=== PATIENT | female | born 1955 | race Caucasian/White ===

== ENCOUNTER → 2024-01-20 13:25 | Outpatient (REF) | payer OTHER, SELFPAY | LOC: RCS 13:25 | PROVIDERS: ATTENDING PHYSICIAN Ophthalmology; FAMILY PHYSICIAN Family Medicine | DX: Z01.818 Encounter for other preprocedural examination (principal) | CPT/HCPCS: 93005 ==

== ENCOUNTER 2024-10-06 16:24 | Observation (INO) | payer OTHER, SELFPAY ==
[2024-10-06] VITALS (11 sets, daily range): BP systolic 85–144; BP diastolic 48–106; BMI 26.0; BMI 26.5
[2024-10-06] MEDS: NSS 1000 IV ×2 (13:07→19:33)
[2024-10-06 13:43] LABS: Blood Urea Nitrogen 14 mg/dl (7-17); Calcium 8.3 mg/dl (8.4-10.2); Carbon Dioxide 25 mmol/L (22-30); Chloride 105 mmol/L (98-107); Estimated Creatinine Clearance 72 ml/min; Glucose 107 mg/dl (70-99); Potassium 4.2 mmol/L (3.5-5.1); Sodium 134 mmol/L (135-145); eGFR > 60.00
--- NOTE | 2024-10-06 13:49 | ED.GENMED ---
History of Present Illness
General
Chief Complaint: Cold/Flu/URI Symptoms
Source: patient and spouse
Exam Limitations: none
Time Seen by Provider: 10/06/24 12:44
History of Present Illness
History of Present Illness:
69-year-old female high fever today. Diagnosed with COVID 4 to 5 days ago. Seemed better yesterday. However high fever today. No shortness of breath. Some cough. No other infectious symptoms. Fever was 104 by skin thermometer. No
antipyretics given at home
Past History
Past History
ED Past Surgical History: Other (Splenectomy)
Phy Exam
Physical Exam
Physical Exam:
GENERAL: Alert and oriented in no apparent distress
EYE: Orbits normal.
NECK: Supple
CARDIAC: Regular rate and rhythm without any obvious murmurs.
LUNGS: Clear breath sounds,normal
ABDOMEN: Soft, without focal tenderness or distention
NEUROLOGICAL: Alert and oriented , grossly non-focal
SKIN: Warm and dry, no rash or lesion, no discoloration, skin intact.
MUSCULOSKELETAL: No edema,no deformity.Good color
PSYCH: Normal and appropriate interaction.
Sepsis
Sepsis Screening
Sepsis Assessment: Sepsis Ruled Out
Sepsis Screen
Sepsis Screen: Sepsis Ruled Out
Date: 10/07/24
Time: 16:44
Course
Orders/Labs/Results
Orders:
Orders
10/06/24 12:57
IV Insert/Care/Rem.- Treatment PRN
0.9% Sodium Chloride 1000 ml [Nss] 1,000 ml IV BOLUS
CXR2 [CR Chest - 2 Views ] Urgent
Comment:
Reason For Exam: COVID/short of breath/cough
10/06/24 13:10
Basic Metabolic Panel Urgent
Complete Blood Count/With Diff Urgent
10/06/24 14:51
COVID-19 Antigen Urgent
Source: Nasal Swab
10/06/24 Dinner
Regular
At Your Request: Full Participation
10/06/24 15:02
CefTRIAXone [Rocephin] 1,000 mg IV NOW STA
10/06/24 15:24
Sterile Water [Sterile Water For Injection] 10 ml .ROUTE .STK-MED ONE
10/06/24 15:35
Blood Culture Q30M
VIKI Source: Blood/Venous
Specimen Description:
10/06/24 15:42
Blood Culture Q30M
VIKI Source: Blood/Venous
Specimen Description:
10/06/24 15:52
Acetaminophen [Tylenol] 650 mg PO NOW STA
10/06/24 15:58
Urinalysis Reflex To Culture Urgent
Date Specimen was Collected: 10/06/24
Time Specimen was Collected: 15:55
Urine Microscopic Reflex Cult Urgent
Urine Culture Urgent
VIKI Source: U
Specimen Description:
Date Specimen was Collected: 10/06/24
Time Specimen was Collected: 15:55
10/06/24 16:12
Admit/Transfer Patient As Directed
Co-Sign Provider:
Level of Care: Observation services
Assign to:: Medical/Surgical
Physician / Group: Sudarshan Jose
Diagnosis: fever, dry cough, viral infection
Reason for Hospitalization: fever, dry cough, viral infection
Expected length of stay greater than two midnights?: Yes
ELOS- Estimated Length of Stay in days: 2
I certify the patient meets the requirements for IP care: Yes
PRN Pain Medication Management As Directed
May give lesser potent ordered pain med per pt: Yes
preference::
Protocol:: Medication orders for pain may be administered in a
manner that supports deferring to patient preference
when the pt is:
- Requesting an ordered lesser potent pain medication.
Least to most potent pain medications are defined
as: acetaminophen < NSAID < tramadol < opioids
(morphine, oxycodone, hydromorphone).
- Requesting a lesser dose of the same medication IF
ORDERED.
- Requesting a less intrusive route of administration
if both routes are prescribed by the provider (PO <
IV).
10/06/24 16:13
Code Status As Directed
Resuscitation Status: Full Code
10/06/24 17:10
Influenza A+B Rapid Molecular Urgent
VIKI Source: Nasal Swab
Specimen Description:
10/06/24 18:42
Acetaminophen [Tylenol] 650 mg PO Q4HPRN PRN
Enoxaparin Sodium [Lovenox] 40 mg SC QPM
10/06/24 18:42
Activity As Directed
Activity Level: Ambulate
Vital Signs As Directed
Frequency: Per unit guidelines
Weight As Directed
Frequency: Once
Comment: on admission
DX Deep Vein Thrombosis Video Routine
10/07/24 06:23
Basic Metabolic Panel IN AM
Complete Blood Count/No Diff IN AM
Abnormal Lab Results
10/06/24 10/06/24
13:10 15:58
RBC 4.00 L 10^6/uL
(4.20-5.40)
Hgb 11.6 L g/dL
(12.0-16.0)
Hct 33.9 L %
(37.0-47.0)
Plt Count 124 L 10^3/uL
(130-400)
MPV 11.6 H fL
(7.4-10.4)
Abs Immat Gran (auto) 0.1 H 10^3/uL
(0-0.05)
Absolute Monos (auto) 0.9 H 10^3/uL
(0.1-0.6)
Immature Gran % 1.1 H %
(0-0.5)
Monocytes % 12.6 H %
(1.7-9.3)
Sodium 134 L mmol/L
(135-145)
Glucose 107 H mg/dl
(70-99)
Calcium 8.3 L mg/dl
(8.4-10.2)
Ur Occult Blood Reflex 3+ A
(Negative)
Leukocyte Esterase Rfl 3+ A
(Negative)
Urine RBC 11-15 A /HPF
(0-2)
Urine WBC (Reflex) 40-50 A /HPF
(0-5)
Urine Bacteria (Reflex) Moderate A
(Negative)
10/06/24 13:10
10/06/24 13:10
Vital Signs
Initial and Last Documented VS:
Initial Vital Signs
Temp Pulse Resp BP Pulse Ox
99.8 F 86 18 143/106 97
10/06/24 11:52 10/06/24 11:52 10/06/24 11:52 10/06/24 11:52 10/06/24 11:52
Last Documented Vital Signs
Temp Pulse Resp BP Pulse Ox
98.9 F 87 18 117/85 96
10/07/24 13:36 10/07/24 13:36 10/07/24 13:36 10/07/24 13:36 10/07/24 13:36
*Radiology
Radiology exam reviewed: preliminary read by ED provider (Negative) and radiology read reviewed (Negative)
*Pulse Oximetry
SaO2: 95
Oxygen Mode of Delivery: Room air
Patient hypoxic: no
*Critical Care Note
Total Time (30-74mins, 75-104mins- exclusive of procedures): Not Applicable
Update Note
Update Note:
Patient has remained medically stable and nontoxic. In no distress. No pulse ox. Blood pressure about 100 which is normal for her. I have elected to do blood cultures and give a dose of Rocephin although nothing to support a bacterial issue with
her splenectomy.
I had planned on letting this patient be discharged given the positive COVID diagnosis with stable other testing. However COVID test here is negative with a high fever earlier today. I am not confident enough in the 1 positive COVID earlier in the
week that this would not be a bacterial source and therefore we will admit her to the hospital
ED Attending Note
-
Portions of this chart may have been created with voice recognition software.� Occasional wrong word or��sound alike� substitutions may have occurred due to the inherent limitations of voice recognition software.
Discharge Plan
Departure
Patient Disposition: Admit
Date of Disposition: 10/06/24
Time of Disposition: 15:03
Presentation/result/management discussed w/ accepting MD/DO: Hospitalist
Patient with high blood pressure during this ER visit?: No
Discharge Problem:
COVID-19
Interventions
Interventions:
*Risk Screen - Suicide Last Done: 10/06/24 19:19
*General Assessment Last Done: 10/06/24 12:39
*Neglect/Abuse Screening Last Done: 10/06/24 11:52
*ED- Fall Risk Assessment Last Done: 10/06/24 12:39
*ED COVID-19 Vaccine History Last Done: 10/06/24 19:19
*Nursing Disposition Last Done: 10/06/24 18:16
ED- Pulmonary Assessment Last Done: 10/06/24 12:39
Discharge Date and Time
Discharge Date/Time: 10/06/24 18:49
[2024-10-06 13:52] LABS: Hematocrit 33.9 % (37.0-47.0); Hemoglobin 11.6 g/dL (12.0-16.0); Mean Corp Hgb Conc. 34.2 g/dL (33.0-37.0); Mean Corpuscular Volume 84.8 fL (81.0-99.0); Nucleated Red Blood Cells % 0 %; Platelet Count 124 10^3/uL (130-400); Red Cell Dist. Width 14.3 % (11.5-14.5)
[2024-10-06 15:15] LABS: COVID-19 Antigen Negative (Negative)
[2024-10-06] MEDS: ROCEPHIN 1000 MG IV (15:42)
--- NOTE | 2024-10-06 15:50 | HPS.HSE ---
Family Physician
-
Family Physician: Toby Kimball MD
Chief Complaint
-
elevated fever
History of Present Illness
Patient is a 69-year-old female with past medical history significant for splenectomy who presented to [facility] ED for evaluation of elevated fever at home today. Patient reports not feeling well all week, she stated just feels under the weather and dry
cough. On Wednesday she took home Covid swab that she reports was positive and today she spiked a fever of 104 at home so her brought her in for evaluation. Patient denies any shortness of breath, chest pain, nausea, vomiting, constipation,
dairrhea or urinary symptoms.
Medical History
Past Medical History
Past Medical History: Reports None
Past Surgical History: Reports Other
Additional Past Surgical History:
splenectomy 2009
Social History
Tobacco: Non-smoker
Alcohol: Occasional
Drug: None
Personal:
Living: With Family
Employment: Retired
Family History
Family History: Not pertinent
Allergies / Home Medications
Allergies reflects when Allergies were last updated in [employer].
Home Medications with original date entered in [employer]
Allergy/Medication List:
Allergies
Allergy/AdvReac Type Severity Reaction Status Date / Time
No Known Allergies Allergy Unverified 09/27/08 22:40
Home Medications
No Meds [No Current Medications] 10/06/24
Review of Systems
-
History Source: Patient
Constitutional: Reports Fever
EENT: Reports No Symptoms
Respiratory: Reports Cough (dry )
Cardiac: Reports No Symptoms
Abdomen/GI: Reports Other (decreased appetite )
: Reports No Symptoms
Musculoskeletal: Reports No Symptoms
Skin: Reports No Symptoms
Neurological: Reports No Symptoms
Endocrine: Reports No Symptoms
Hematologic/Lymphatic: Reports No Symptoms
Psych: Reports No Symptoms
Physical Exam
Vital Signs
Vital Signs
Temp Pulse Resp BP Pulse Ox
102.1 F H 71 20 95/58 95
10/06/24 15:48 10/06/24 15:48 10/06/24 12:36 10/06/24 15:00 10/06/24 15:00
Physical Exam
General: Well Developed, Well Nourished and Conversant
HEENT: NormoCephalic, Moist mucous membranes, Atraumatic, PERRLA, Nose Appears Normal and Ears Appear Normal
Respiratory: Clear
Cardiac: S1/S2 and Regular Rhythm
Breast: Deferred by me
GI: Soft, Non Tender, Non Distended and Normal Bowel Sounds
Rectal: Deferred by Provider
Genito-urinary: Deferred by me
Musculoskeletal: No Clubbing, No Cyanosis and No Edema
Skin: Warm and IV/Catheter Site
Neuro: Awake, Alert, AO x 3 and Nonfocal/grossly intact
Psych: Calm and Intact Judgment/Insight
Laboratory Results
-
10/06/24 13:10
10/06/24 13:10
Data Reviewed
-
Diagnostic Radiology: Report Reviewed by me (CXR: No evidence of active cardiopulmonary disease.)
Lab Data: Labs Reviewed by me
Impression/Plan
-
IMPRESSION/PLAN:
#fever with dry cough likely 2/2 viral infection
s/p splenectomy 2009
Covid: negative
Influenza: pending
CXR: No evidence of active cardiopulmonary disease.
UA: pending
Urine Cx: pending
- Admit to med/surg for observation
- empiric antibiotics Levaquin
- supportive care
Code status: full code
DVT prophylaxis: Lovenox sq
[2024-10-06] MEDS: TYLENOL 650 MG PO (16:00)
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
[2024-10-06 16:11] LABS: Urine Character Clear (Clear)
[2024-10-06 16:26] LABS: Urine Squamous Cell 26-30 /LPF (Few); Urine Urothelial Cell 0-2 /LPF (FEW)
[2024-10-06 16:27] LABS: Urine White Cell 40-50 /HPF (0-5)
[2024-10-06] MEDS: LOVENOX 40 MG SC (19:33)
[2024-10-07 07:03] LABS: Hematocrit 29.7 % (37.0-47.0); Hemoglobin 10.3 g/dL (12.0-16.0); Mean Corp Hgb Conc. 34.7 g/dL (33.0-37.0); Mean Corpuscular Volume 85.1 fL (81.0-99.0); Platelet Count 128 10^3/uL (130-400); Red Cell Dist. Width 14.4 % (11.5-14.5)
[2024-10-07 07:08] VITALS: BP 111/45
[2024-10-07 07:33] LABS: Blood Urea Nitrogen 9 mg/dl (7-17); Calcium 7.9 mg/dl (8.4-10.2); Carbon Dioxide 23 mmol/L (22-30); Chloride 108 mmol/L (98-107); Estimated Creatinine Clearance 75 ml/min; Glucose 91 mg/dl (70-99); Potassium 4.0 mmol/L (3.5-5.1); Sodium 136 mmol/L (135-145); eGFR > 60.00
[2024-10-07] MEDS: LEVAQUIN 750 MG PO (08:06)
[2024-10-07] MEDS: NSS 1000 IV (08:07)
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
[2024-10-07 13:36] VITALS: BP 117/85
--- NOTE | 2024-10-07 13:42 | CM ---
[facility] letter given to patient Chart reviewed and patient was admitted from home where she lives with her spouse, patient's home is 2 story patient is independent with adl's and ambulation, no dme, patient drives home when stable, no needs.
PCP: Dr. Toby Kimball
Pharmacy: [facility]
Plan; Home today no needs.
== END 2024-10-07 13:59 | disposition home or self-care (01) ==
LOC: 4 WEST ACU 16:24
PROVIDERS: Nurse Practitioner Family; ADMITTING PHYSICIAN Internal Medicine; EMERGENCY PHYSICIAN Emergency Medicine; FAMILY PHYSICIAN Internal Medicine
DX: J18.9 Pneumonia, unspecified organism (principal); Q89.01 Asplenia (congenital); E87.1 Hypo-osmolality and hyponatremia; Z90.81 Acquired absence of spleen; Z11.52 Encounter for screening for COVID-19
CPT/HCPCS: 71046; 80048; 81003; 81015; 85025; 85027; 87040; 87086; 87449; 87502; 87811; 87899; 96361; 96374; 99284; G0378

== ENCOUNTER 2024-10-13 05:31 | Emergency (ER) | payer OTHER, SELFPAY ==
[2024-10-13 05:36] VITALS: BP 102/51
[2024-10-13 05:55] VITALS: BMI 23.9
--- NOTE | 2024-10-13 06:23 | ED.GENMED ---
History of Present Illness
<Yon Rangel PA-C - Last Filed: 10/13/24 14:43>
General
Chief Complaint: Cough
Source: patient
Time Seen by Provider: 10/13/24 06:03
History of Present Illness
History of Present Illness:
69-year-old female with recent past medical history of COVID requiring admission due to previous splenectomy and recurring fevers, presenting back to the emergency department due to persistent cough and fever yesterday with a Tmax of 102. Patient
endorses associated generalized weakness/fatigue, diminished p.o. intake and still the persistent nonproductive cough. Last dose of Advil was at some point last night but nothing this morning. Patient denies any chest pain, palpitations,
diaphoresis, pleurisy, hemoptysis, lower extremity edema or any other concerns. Patient tested positive for COVID on October 03, had a negative COVID test on October 06 here in the emergency department.
Past History
<Yon Rangel PA-C - Last Filed: 10/13/24 14:43>
Past History
ED Past Medical History: None
ED Past Surgical History: Other (Splenectomy)
Social History
Tobacco: Non-smoker
Alcohol: None
Drug: None
Personal:
Living: with family
Review of Systems
<Yon Rangel PA-C - Last Filed: 10/13/24 14:43>
Review of Systems
All Other Systems: ROS reviewed and negative except as documented in HPI and ROS
Phy Exam
<Yon Rangel PA-C - Last Filed: 10/13/24 14:43>
Physical Exam
Physical Exam:
GENERAL: Alert , in no apparent distress, persistent nonproductive cough during the exam
HEAD: Normocephalic atraumatic
EYE: conjunctiva clear
NECK: Supple
ENT: o/p clr, mmm.
CARDIAC: Regular rate and rhythm
LUNGS: Clear breath sounds bilaterally, no acute respiratory distress, no wheezes/rales/rhonchi
NEUROLOGICAL: Alert and oriented
SKIN: Warm and dry, skin intact.
MUSCULOSKELETAL: well perfused.
PSYCH: Normal and appropriate interaction.
Scores
<Yon Rangel PA-C - Last Filed: 10/13/24 14:43>
Heart Failure Risk
Heart Failure Risk Score: Not Applicable
Heart Score for Chest Pain Patients
STEMI patient?: Not applicable
Withdrawal Assessment of Alcohol
Withdrawal Assessment Completed?: Not applicable
Sepsis
<Yon Rangel PA-C - Last Filed: 10/13/24 14:43>
Sepsis Screening
Sepsis Assessment: Sepsis Ruled Out
Sepsis Screen
Sepsis Screen: Sepsis Ruled Out
Date: 10/13/24
Time: 14:42
Course
<Yon Rangel PA-C - Last Filed: 10/13/24 14:43>
Orders/Labs/Results
Orders:
Orders
10/13/24 06:21
CT Chest PE Study Urgent
Comment:
Reason For Exam: recent covid, continued cough, SOB, fever
10/13/24 06:26
0.9% Sodium Chloride 1000 ml [Nss] 1,000 ml IV BOLUS
10/13/24 06:28
COVID-19 Antigen Urgent
Source: Nasal Swab
Complete Blood Count/With Diff Urgent
Comprehensive Metabolic Panel Urgent
Manual Differential Urgent
Comment: ADD ON
Blood Culture Q30M
VIKI Source: Blood/Venous
Specimen Description:
Influenza A+B Rapid Molecular Urgent
VIKI Source: Nasal Swab
Specimen Description:
10/13/24 07:24
Blood Culture Q30M
VIKI Source: Blood/Venous
Specimen Description:
10/13/24 09:28
Ehrlichia/Anaplasma by PCR [S] Urgent
Lyme Progressive Urgent
Babesia Smear [Blood Parasites] Urgent
VIKI Source: Blood/Venous
Specimen Description:
Abnormal Lab Results
10/13/24
06:28
RBC 2.78 L 10^6/uL
(4.20-5.40)
Hgb 8.1 L D g/dL
(12.0-16.0)
Hct 23.8 L %
(37.0-47.0)
RDW 16.3 H %
(11.5-14.5)
Plt Count 110 L 10^3/uL
(130-400)
MPV 13.1 H fL
(7.4-10.4)
Lymphocytes (Manual) 17 L %
(20-51)
Sodium 133 L mmol/L
(135-145)
Carbon Dioxide 21 L mmol/L
(22-30)
Glucose 121 H mg/dl
(70-99)
Calcium 7.5 L mg/dl
(8.4-10.2)
Total Bilirubin 3.6 H mg/dl
(0.2-1.3)
AST 59 H U/L
(14-36)
Total Protein 6.1 L g/dl
(6.3-8.2)
Albumin 2.9 L g/dl
(3.5-5.0)
10/13/24 06:28
10/13/24 06:28
Vital Signs
Initial and Last Documented VS:
Initial Vital Signs
Temp Pulse Resp BP Pulse Ox
98.0 F 86 18 102/51 97
10/13/24 05:36 10/13/24 05:36 10/13/24 05:36 10/13/24 05:36 10/13/24 05:36
Last Documented Vital Signs
Temp Pulse Resp BP Pulse Ox
98.0 F 82 30 93/49 96
10/13/24 08:00 10/13/24 07:25 10/13/24 07:25 10/13/24 07:25 10/13/24 07:25
Body Welder consulted with Physician
Body Welder consulted with physician?: Yes
Name of Physician Consulted: Tiburcio
<Aron Perez, DO - Last Filed: 10/13/24 09:17>
Orders/Labs/Results
Orders:
Orders
10/13/24 06:21
CT Chest PE Study Urgent
Comment:
Reason For Exam: recent covid, continued cough, SOB, fever
10/13/24 06:26
0.9% Sodium Chloride 1000 ml [Nss] 1,000 ml IV BOLUS
10/13/24 06:28
COVID-19 Antigen Urgent
Source: Nasal Swab
Complete Blood Count/With Diff Urgent
Comprehensive Metabolic Panel Urgent
Manual Differential Urgent
Comment: ADD ON
Blood Culture Q30M
VIKI Source: Blood/Venous
Specimen Description:
Influenza A+B Rapid Molecular Urgent
VIKI Source: Nasal Swab
Specimen Description:
10/13/24 07:24
Blood Culture Q30M
VIKI Source: Blood/Venous
Specimen Description:
10/13/24 09:28
Ehrlichia/Anaplasma by PCR [S] Urgent
Lyme Progressive Urgent
Babesia Smear [Blood Parasites] Urgent
VIKI Source: Blood/Venous
Specimen Description:
Abnormal Lab Results
10/13/24
06:28
RBC 2.78 L 10^6/uL
(4.20-5.40)
Hgb 8.1 L D g/dL
(12.0-16.0)
Hct 23.8 L %
(37.0-47.0)
RDW 16.3 H %
(11.5-14.5)
Plt Count 110 L 10^3/uL
(130-400)
MPV 13.1 H fL
(7.4-10.4)
Lymphocytes (Manual) 17 L %
(20-51)
Sodium 133 L mmol/L
(135-145)
Carbon Dioxide 21 L mmol/L
(22-30)
Glucose 121 H mg/dl
(70-99)
Calcium 7.5 L mg/dl
(8.4-10.2)
Total Bilirubin 3.6 H mg/dl
(0.2-1.3)
AST 59 H U/L
(14-36)
Total Protein 6.1 L g/dl
(6.3-8.2)
Albumin 2.9 L g/dl
(3.5-5.0)
10/13/24 06:28
10/13/24 06:28
Vital Signs
Initial and Last Documented VS:
Initial Vital Signs
Temp Pulse Resp BP Pulse Ox
98.0 F 86 18 102/51 97
10/13/24 05:36 10/13/24 05:36 10/13/24 05:36 10/13/24 05:36 10/13/24 05:36
Last Documented Vital Signs
Temp Pulse Resp BP Pulse Ox
98.0 F 82 30 93/49 96
10/13/24 08:00 10/13/24 07:25 10/13/24 07:25 10/13/24 07:25 10/13/24 07:25
<Yon Rangel PA-C - Last Filed: 10/13/24 14:43>
MDM/Problems Addressed
Differential Diagnosis Includes:
Post COVID cough
Secondary pneumonia
Pulmonary embolism
Pleural effusion
Bronchitis
Myocarditis
Asthma/Reactive airway disease
MDM/Problems Addressed:
69-year-old female past medical history of previous splenectomy secondary to trauma presenting back to the emergency department after recent COVID infection, admitted here for 24-hour period, discharged home on a 10-day course of Augmentin,
continues to take this medication. Reports fever yesterday, afebrile here without antipyretics. She is in no acute distress. Persistent cough noted. Will obtain PE study. Labs including blood cultures ordered. Disposition pending.
Chronic conditions affecting care: Other (Previous splenectomy)
<Yon Rangel PA-C - Last Filed: 10/13/24 14:43>
*Radiology
Radiology exam reviewed: radiology read reviewed
*Pulse Oximetry
SaO2: 97
Oxygen Mode of Delivery: Room air
Patient hypoxic: no
*Mailroom Manager Interpretation
Rate: normal
Heart Rate: 85
Rhythm: sinus
*Critical Care Note
Total Time (30-74mins, 75-104mins- exclusive of procedures): Not Applicable
Data Reviewed
Review of Other/Old Records Reveals: Labs, Records, Radiology Studies and Discharge Summary
<Yon Rangel PA-C - Last Filed: 10/13/24 14:43>
Comment
Comment:
8:07 AM: Patient's labs reviewed. Hemoglobin has dropped from 11.6 on October 06 down to 8.1 today, her bilirubin and AST are also elevated which could be related to her recent known COVID infection. I did perform a bedside rectal exam, chaperoned by
ED RN Monie, light brown stool, heme-negative. Patient remains hemodynamically stable. Awaiting CT imaging.
Patient Management
Social determinants of health affecting care: Living situation and Strong social support
Discussion with other providers: Fire Prevention Research Engineer
Escalation/DeEscalation of care consider admission/obs:
Patient CTA is negative for any acute pathologies, no PE. Patient remains afebrile and otherwise hemodynamically stable. Patient was offered admission given her immunocompromised state with the continued reported fever at home however she
ultimately stated she preferred to be discharged home. I notified infectious disease to see if they would change any of patient's medications or add any additional tests on and they did recommend obtaining ehrlichia, Babesia and Lyme titers.
Patient does have an arranged follow-up with primary care provider this coming Wednesday. Advised on return precautions to the emergency department in the meantime. Both patient and significant other feel comfortable with this plan.
<Yon Rangel PA-C - Last Filed: 10/13/24 14:43>
Update Note
Update Note:
October 13, 2024 1325: I received notification from the lab that patient has a 21% parasitemia, but tested positive for babesiosis. I notified infectious disease who states due to that amount of parasitemia patient would need exchange transfusion and
that patient needs to come back to the emergency. I contacted both patient and , states he will bring the patient back to the emergency department immediately.
ED Attending Note
<Yon Rangel PA-C - Last Filed: 10/13/24 14:43>
-
Portions of this chart may have been created with voice recognition software.� Occasional wrong word or��sound alike� substitutions may have occurred due to the inherent limitations of voice recognition software.
<Aron Perez DO - Last Filed: 10/13/24 09:17>
ED Attending Note
Patient seen and examined by attending physician: Yes
I performed the substantive portion of visit, reviewed & personally made and approve the management plan that is documented in note by myself or MARLA.: Yes
ED Attending Note:
69-year-old female recent COVID diagnosis 2 does report weakness cough and persistent fevers intermittently. No fever here. Labs reviewed by me shows a drop in her hemoglobin to 8.1. Rectal exam by Bryon midline shows heme-negative stool. Patient
is well-appearing white count okay. CT shows no pneumonia and is already on Augmentin. Plan: Discussed with ID for further recommendations. Patient does prefer to go home if okay by ID. Considered admission given history of splenomegaly.
However recent cultures are negative and is already on antibiotics. Repeat culture sent
Discharge Plan
Departure
Patient Disposition: Home (Routine Discharge)
Date of Disposition: 10/13/24
Time of Disposition: 09:19
Patient with high blood pressure during this ER visit?: No
Discharge Problem:
Cough
Instructions: Cough, Adult (DC)
Prescriptions:
No Action
amoxicillin-pot clavulanate 875-125 mg tablet
1 tab PO BID 8 Days Qty: 16 0RF
Rx Instructions:
for 8 eight days starting 10/07/24
ibuprofen [Advil] 200 mg Tablet
400 mg PO Q6HPRN PRN (Reason: mild pain)
Referrals:
Toby Kimball MD [Family Provider, Internal Medicine]
Interventions
Interventions:
*Risk Screen - Suicide Last Done: 10/13/24 05:36
*General Assessment Last Done: 10/13/24 05:55
*Neglect/Abuse Screening Last Done: 10/13/24 05:36
*ED- Fall Risk Assessment Last Done: 10/13/24 05:55
*ED COVID-19 Vaccine History Last Done: 10/13/24 05:55
*Nursing Disposition Last Done: 10/13/24 09:50
ED- Pulmonary Assessment Last Done: 10/13/24 05:55
Discharge Date and Time
Discharge Date/Time: 10/13/24 09:50
Print Language: UKRAINIAN
[2024-10-13 06:30] VITALS: BP 95/53
[2024-10-13] MEDS: NSS 1000 IV (06:35)
[2024-10-13 06:46] LABS: Hematocrit 23.8 % (37.0-47.0); Hemoglobin 8.1 g/dL (12.0-16.0); Mean Corp Hgb Conc. 34.0 g/dL (33.0-37.0); Mean Corpuscular Volume 85.6 fL (81.0-99.0); Platelet Count 110 10^3/uL (130-400); Red Cell Dist. Width 16.3 % (11.5-14.5)
[2024-10-13 07:14] LABS: ALT (SGPT) 34 U/L (0-35); AST (SGOT) 59 U/L (14-36); Albumin 2.9 g/dl (3.5-5.0); Alkaline Phosphatase 56 U/L (38-126); Blood Urea Nitrogen 16 mg/dl (7-17); Calcium 7.5 mg/dl (8.4-10.2); Carbon Dioxide 21 mmol/L (22-30); Chloride 105 mmol/L (98-107); Estimated Creatinine Clearance 75 ml/min; Glucose 121 mg/dl (70-99); Potassium 3.9 mmol/L (3.5-5.1); Sodium 133 mmol/L (135-145); Total Protein 6.1 g/dl (6.3-8.2); eGFR > 60.00
[2024-10-13 07:17] LABS: Absolute Neutrophils -Man Diff 5.4 10^3/uL (1.4-6.5); COVID-19 Antigen Negative (Negative); Normal RBC Morphology Yes; Platelets Checked Yes; Total Cells Counted 100
[2024-10-13 07:25] VITALS: BP 93/49
[2024-10-16 13:31] LABS: Lyme Antibody Screen, EIA Negative (Negative)
== END 2024-10-13 09:50 | disposition home or self-care (01) ==
LOC: EMR 05:31
PROVIDERS: Physician Assistant Medical; EMERGENCY PHYSICIAN Emergency Medicine; FAMILY PHYSICIAN Internal Medicine
DX: B60.00 Babesiosis, unspecified (principal); R05.9 Cough, unspecified; Z90.81 Acquired absence of spleen; Z11.52 Encounter for screening for COVID-19
CPT/HCPCS: 71275; 80053; 85025; 86618; 87015; 87040; 87207; 87468; 87484; 87502; 87798; 87811; 96360; 99284; Q9967

== ENCOUNTER 2024-10-13 15:52 | Inpatient (IN) | payer OTHER, SELFPAY ==
[2024-10-13] VITALS (35 sets, daily range): BP systolic 70–112; BP diastolic 48–82; BMI 24.4
--- NOTE | 2024-10-13 14:07 | ED.GENMED ---
History of Present Illness
General
Chief Complaint: Abnormal Lab Value
Source: patient and records
Time Seen by Provider: 10/13/24 14:01
History of Present Illness
History of Present Illness:
69-year-old female seen in this emergency department earlier today for evaluation of continued fever and worsening cough presented back to the emergency department after being advised to come back to the ER due to a 21% parasitemia/concern for
babesiosis on labs drawn earlier. Patient with no new concerns. No fevers at home but still reports continued fatigue and generalized weakness. Infectious disease team was contacted and recommended patient come back to the emergency department
for exchange transfusion, will need temporary hemodialysis catheter, heme-onc consult and IR consult.
Past History
Past History
ED Past Medical History: None
ED Past Surgical History: Other (Splenectomy)
Social History
Tobacco: Non-smoker
Alcohol: None
Drug: None
Personal:
Living: with family
Review of Systems
Review of Systems
All Other Systems: ROS reviewed and negative except as documented in HPI and ROS
Phy Exam
Physical Exam
Physical Exam:
GENERAL: Alert , in no apparent distress
EYE: conjunctiva clear
Head: Normocephalic atraumatic
NECK: Supple,
ENT: mmm.
LUNGS: no acute respiratory distress
NEUROLOGICAL: Alert and oriented
SKIN: Warm and dry, skin intact.
MUSCULOSKELETAL: well perfused.
PSYCH: Normal and appropriate interaction.
Scores
Heart Failure Risk
Heart Failure Risk Score: Not Applicable
Heart Score for Chest Pain Patients
STEMI patient?: Not applicable
Withdrawal Assessment of Alcohol
Withdrawal Assessment Completed?: Not applicable
Course
Orders/Labs/Results
Orders:
Orders
10/13/24 14:04
PTT Urgent
Prothrombin Time Urgent
10/13/24 14:05
Type+Screen Urgent
Vital Signs
Initial and Last Documented VS:
Initial Vital Signs
Temp Pulse Resp BP Pulse Ox
98.8 F 87 18 92/56 96
10/13/24 14:00 10/13/24 14:00 10/13/24 14:00 10/13/24 14:00 10/13/24 14:00
Last Documented Vital Signs
Temp Pulse Resp BP Pulse Ox
98.8 F 87 18 92/56 96
10/13/24 14:00 10/13/24 14:00 10/13/24 14:00 10/13/24 14:00 10/13/24 14:08
MDM/Problems Addressed
Differential Diagnosis Includes:
Known babesiosis/parasitemia
MDM/Problems Addressed:
69-year-old female presenting back to the emergency department after having abnormal babesiosis labs/parasite smear with 21% parasitemia. Infectious disease contacted, will see in consult. I contacted IR as well as heme-onc to help in obtaining
hemodialysis catheter for the exchange transfusion. Hospitalist team notified and accepts for admission.
Chronic conditions affecting care: Previous abdomnial surgery (Status post splenectomy)
*Pulse Oximetry
SaO2: 96
Oxygen Mode of Delivery: Room air
Patient hypoxic: no
*Long Wall Mining Machine Tender Interpretation
Rate: normal
Heart Rate: 92
Rhythm: sinus
*Critical Care Note
Total Time (30-74mins, 75-104mins- exclusive of procedures): Not Applicable
Data Reviewed
Review of Other/Old Records Reveals: Labs, Records and Discharge Summary
Source: patient and records
Patient Management
Discussion with other providers: Hospitalist and Aerial Tram Operator
ED Attending Note
-
Portions of this chart may have been created with voice recognition software.� Occasional wrong word or��sound alike� substitutions may have occurred due to the inherent limitations of voice recognition software.
Discharge Plan
Departure
Patient Disposition: Admit
Date of Disposition: 10/13/24
Time of Disposition: 14:07
Presentation/result/management discussed w/ accepting MD/DO: Hospitalist
Discharge Problem:
Babesiosis
Prescriptions:
No Action
amoxicillin-pot clavulanate 875-125 mg tablet
1 tab PO BID 8 Days Qty: 16 0RF
Rx Instructions:
for 8 eight days starting 10/07/24
ibuprofen [Advil] 200 mg Tablet
400 mg PO Q6HPRN PRN (Reason: mild pain)
Interventions
Interventions:
*Risk Screen - Suicide Last Done: 10/13/24 14:00
*General Assessment Last Done: 10/13/24 14:00
*Neglect/Abuse Screening Last Done: 10/13/24 14:00
Discharge Date and Time
Print Language: DIVEHI
--- NOTE | 2024-10-13 14:40 | HPS.HSE ---
Family Physician
-
Family Physician: Linh Ham
Chief Complaint
-
fever
History of Present Illness
69-year-old female who was recently admitted to the hospital for fever and weakness and was treated with antibiotics. Patient returned to the ER with complaints of persistent cough and fever with elevated temperature at home. Patient's been
feeling severe fatigued and weak for quite some period of time. Also states of severely decreased p.o. intake. States a persistent nonproductive cough. Patient was seen in the ER earlier this morning and underwent CT scan of the chest which was
negative for pulmonary embolism. Blood work was done including parasite smear and babesiosis came back positive and patient was called to return to the hospital. Patient states of persistent weakness with elevated temperature at home. Severely
decreased p.o. intake. States of lightheaded and dizziness. States of dark-colored urine. Patient was found to be anemic and heme test was performed in ER which were found to be negative. Had 1 episode of vomiting. No nausea currently. No
abdominal pain. Denies any headache or vision problems. Denies any rash. Denies any tick bite. Denies any hemoptysis, palpitations, lower extremity edema, chest pain. Patient stated she was positive for COVID-19 on October 03 however subsequently
COVID-negative x 2 in the hospital.
Medical History
Past Medical History
Past Medical History: Reports Other
Additional Past Medical History:
traumatic subarachnoid hemorrhage and splenic rupture
Past Surgical History: Reports Other
Additional Past Surgical History:
Splenectomy
Social History
Tobacco: Non-smoker
Alcohol: Occasional
Living: With Family
Family History
Family History: Not pertinent
Allergies / Home Medications
Allergies reflects when Allergies were last updated in [facility].
Home Medications with original date entered in [facility]
Allergy/Medication List:
Allergies
Allergy/AdvReac Type Severity Reaction Status Date / Time
No Known Allergies Allergy Verified 10/13/24 13:59
Home Medications
amoxicillin 875 mg-potassium clavulanate 125 mg tablet 1 tab PO BID 8 days #16 tabs 10/07/24
ibuprofen 200 mg tablet (Advil) 400 mg PO Q6HPRN PRN mild pain 10/13/24
Review of Systems
-
History Source: Patient and Family
A 12 point ROS was completed and negative except as noted: Yes
Physical Exam
Vital Signs
Vital Signs
Temp Pulse Resp BP Pulse Ox
98.8 F 87 18 92/56 96
10/13/24 14:00 10/13/24 14:00 10/13/24 14:00 10/13/24 14:00 10/13/24 14:08
Physical Exam
General: Well Developed, Well Nourished, No Apparent Distress and Other (Pale)
HEENT: NormoCephalic, Moist mucous membranes and Atraumatic
Respiratory: Clear
Cardiac: S1/S2 and Regular Rhythm; No Murmur or Rub
GI: Soft, Non Tender, Non Distended and Normal Bowel Sounds; No Organomegaly
Rectal: Deferred by Provider
Musculoskeletal: No Clubbing, No Cyanosis and No Edema
Skin: No Rash
Neuro: Awake, AO x 3, No Motor Deficits and Nonfocal/grossly intact
Psych: Calm
Data Reviewed
-
Lab Data: Labs Reviewed by me, Discussed with Patient and Discussed with Family
Old Records: Reviewed
Impression/Plan
-
#Fever/fatigue/weakness/anemia secondary to severe babesiosis
#Immunocompromised with history of splenectomy
Atovaquone and azithromycin per ID
Patient probably will need exchange transfusion
Patient will need to be monitored closely. Admit to ICU
Blood pressure soft.
Start IV fluids
Monitor parasite smear percentile.
Follow-up on the blood culture results
Per PCR smear with 21% Parasitemia
Follow-up on the Lyme screen, ehlrichia, anaplasma
Check LDH and fibrinogen
PT and PTT noted normal
Type and screen pending
ID has been consulted
[facility] consulted for catheter placement
Hematology assistance appreciated coordination with [place]
#Thrombocytopenia likely concern in the setting of babesiosis
Monitor for now
#Mild hyponatremia likely hypovolemia
Monitor WBC
Start gentle IV fluids
#Elevated bilirubin likely in the setting of hemolysis
Check direct bilirubin and
Check GGT
Trend CMP for now
Coag panel pending
DVT prophylaxis SCDs for now
Discussed with spouse in detail
Discussed with ID
Discussed with Dr. Pro
I spent a total of 90 minutes with the patient or on the floor. More than 50% of this time involved counseling and coordination of care.
[2024-10-13 14:55] LABS: INR 1.10; PT 14.5 Sec (11.4-14.6)
[2024-10-13 14:56] LABS: APTT 26.9 Sec (23.4-35.0)
--- NOTE | 2024-10-13 15:14 | CON.ID ---
Consultation
-
Date/Time Consultation Requested: October 13, 2024 1500
Date/Time Consultation Performed: October 13, 2024 1515
Requesting Provider: Dr. Jez Bernardo
Performing Provider: Dr. Inez Austin
Reason for Consultation: Babesia
Chief Complaint / Past History
Chief Complaint
Fever and weakness
History of Present Illness
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 Patient reports dry cough since August. October 03 home test positive for COVID. She developed
fevers and therefore came to the ER October 06. Temperature 102.1. COVID antigen test negative. chest x-ray negative. She was admitted overnight on antibiotic and discharged to home on Augmentin. She continued to have fevers at home and also
worsening weakness plus fatigue. She presented back to the ER this morning. Chest CT showed atelectasis without pneumonia. Hemoglobin noted to be lower from 11.8 down to 8.1. Platelet count also low 110. T. bili 3.6. ED discussed case with ID
(mi) who recommended stat stat Babesia smear. Patient did not want to stay and thus was discharged home. This afternoon, the blood smear showed 21% Babesia parasitemia. ED called the patient and she came back to the hospital. She does live in
the area with ticks. Her dog carries ticks into the house. She thinks she may have found a tick on her back in August. She continues to have dry cough. No headache. No nausea or vomiting or abdominal pain or diarrhea. Appetite is poor.
Past History
Additional Past Medical History:
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
History of traumatic subarachnoid hemorrhage September 2008
Allergy History:
No Known Allergies Allergy (Verified 10/13/24 13:59)
Medications Reviewed: Yes
Current Antibiotics:
Outpatient Augmentin
Social History
Tobacco: Non-Smoker
Alcohol: None
Drug: None
Personal:
Living: With Family
Employment: Retired
Family History
Family History: Not Pertinent
Review of Systems
Review of Systems
General: Fever, Chills and Change in Appetite
HEENT: Negative Sinus Problems, Headache or Pharyngitis
Cardiovascular: Negative Chest Pain or Dyspnea
Respiratory: Cough; Negative Dyspnea
Gasteroenterology: Nausea; Negative Vomiting or Diarrhea
Genital / Urological: Negative Dysuria or Flank Pain
Endocrine: Weakness and Fatigue
Musculoskeletal: Myalgias; Negative Arthralgias
Skin / Hair / Nails: Negative Rash
Neurological: Negative Dizziness
All systems: All other systems were reviewed and were negative
Vital Signs
Temp Pulse Resp BP Pulse Ox
98.8 F 87 18 92/56 96
10/13/24 14:00 10/13/24 14:00 10/13/24 14:00 10/13/24 14:00 10/13/24 14:08
Physical Exam
Physical Exam
Constitutional: No Acute Distress and Comfortable
Eyes: No Conjunctival Hemorrhage and Other (Sclera icteric)
Cardiovascular: Regular Rate and S1/S2
Pulmonary: Clear and Other (+ cough)
Gastrointestinal: Soft, Non Tender, Non Distended and Normal Bowel Sounds
Genito-Urinary: Negative CVA Tenderness
Extremities: Negative Edema
Skin: Jaundice
Neurological: AO x 3
Lab / Diagnostic Study Results
PT 14.5 Sec (11.4-14.6) 10/13/24 14:33
INR 1.10 10/13/24 14:33
Microbiology Results
10/13/[address]: Mild dependent atelectasis within the posterior lungs. Thin linear density within the posterior and inferior lingula, which is likely linear atelectasis, although could also be a thin linear scar. No evidence for pneumonia or lung
mass. Status post splenectomy.
Assessment / Plan
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
# Asplenia - at risk for severe infection, which can progress to acute respiratory distress syndrome, multiorgan failure, and DIC
# Acute anemia with hemolysis due to Babesia
# Acute thrombocytopenia due to babesiosis
# Fever
- Start Azithromycin 1000 mg IV every 24 hours and atovaquone 750 mg p.o. every 12 hours.
- She meets criteria for exchange transfusion with>10% parasitemia.
- IR to place large bore hemodialysis catheter.
- Spoke to heme-onc regarding need for exchange transfusion.
- Check Babesia smear daily. Exchange transfusion when less than 5 to 10% parasitemia
-Will also give empiric doxycycline for possible coinfection with other tickborne illnesses pending lab results.
Care Review
Plan reviewed with: Physician (Inocencia Spence, Claire)
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
--- NOTE | 2024-10-13 15:43 | CM ---
CM reviewed chart and met with pt bedside in ED. Lives with in 2 story home, independent in ADLs, personal care and ambulation at baseline. No DME.
No hx VN/SNF
PCP: Linh Ham
Pharmacy: [facility]
CM will continue to follow for discharge planning needs
[2024-10-13] MEDS: MEPRON SUSPENSION 750 MG PO (15:54)
[2024-10-13] MEDS: ZITHROMAX 510 MG IV (15:55)
--- NOTE | 2024-10-13 16:30 | PN.IRAD.UPD ---
Update Note - IRAD
- -
Asked pts nurse Ermias to document [facility].
Toby ARAIZA(R)()
--- NOTE | 2024-10-13 17:27 | CON.INTV ---
Consultation
Consultation Request
Date/Time Consultation Requested: 10/13
Date/Time Consultation Performed: 10/13
Reason for Consultation: Critical care
Medical History
-
History of Present Illness:
History obtained from the patient and also reviewed records. Patient is a 69-year-old female With history of traumatic subarachnoid hemorrhage in the past, splenic rupture with splenectomy, recently discharged 10/07/24 with fevers and cough.
Patient was noted to be positive Covid 10/03. Acute tooth IV ceftriaxone and IV fluids. She significant improved with regards to her cough, further infectious workup negative including Legionella and streptococcal antigen. She was discharged on
amoxicillin clavulanate to complete 10 day course and recommended to follow-up with primary physician. She returned 10/13 with persistent cough and fevers. She apparently had blood work earlier in the day which showed 21% parasitemia concerning for
babesiosis. Patient continues with general fatigue. Upon allowed to go outside hospital, afebrile, pulse 87, breathing at 18, blood pressure 92/56, 96%. Patient was admitted, dialysis catheter was placed for exchange transfusion. We are asked to
help from critical care standpoint
Presently, patient is without complaints. at bedside. It is noted that a repeat hemoglobin was noted to be 6.4. Transfusion has been ordered
.
PMH: Subarachnoid hemorrhage secondary to trauma with splenic rupture requiring splenectomy. Recent hospital stay for viral illness, fevers, Covid 10/03/24
Past Medical History
Past Medical History: None ( see above)
Past Surgical History: None ( see above)
Social History
Tobacco: Former Smoker
Alcohol: None
Drug: None
Personal:
Living: With Family
Employment: Not Employed
Family History
Family History: Other ( Greek-speaking.)
Allergies / Home Medications
Allergies
Allergy/AdvReac Type Severity Reaction Status Date / Time
No Known Allergies Allergy Verified 10/13/24 13:59
Home Medications
�Medication �Instructions �Recorded �Confirmed �Last Taken �Type
amoxicillin 875 mg-potassium 1 tab PO BID 8 days #16 tabs 10/07/24 10/13/24 10/13/24 Rx
clavulanate 125 mg tablet
ibuprofen 200 mg tablet (Advil) 400 mg PO Q6HPRN PRN mild pain 10/13/24 10/13/24 10/12/24 History
Review of Systems
-
All other systems: Negative unless noted
Vitals / Labs / Diagnostic Testing
Vital Signs
Temp Pulse Resp BP Pulse Ox
98.8 F 78 18 96/62 96
10/13/24 14:00 10/13/24 16:49 10/13/24 16:49 10/13/24 16:49 10/13/24 16:49
Laboratory Results
10/13/24
14:33
PT 14.5
INR 1.10
APTT 26.9
Diagnostic Testing:
Physical Exam
-
HEENT: Normocephalic and Anicteric
Cardiovascular: S1/S2, Regular Rhythm, Murmur (n) and Peripheral Edema (n)
Respiratory: Wheeze (n), Rales (n), Rhonchi (n) and Non-Labored Respirations
GI: Soft, Non Distended and Non Tender
Neurology: Awake, Alert and No Motor Deficits
Skin: Other ( mild pallor)
General: Comfortable
Assessment
-
69-year-old female with recent hospital stay for Covid, discharged recently, persistent cough and shortness of breath noted, outpatient labs with 21% parasitemia consistent with babesiosis, now with anemia. Patient meditates here for exchange
transfusion
Acute babesiosis
21% parasitemia
Persistent fevers, cough
Recent hospital stay for fevers, cough,
Discharge on antibiotic therapy
Positive Covid
Hyponatremia
Hypocalcemia
Elevated bilirubin
Elevated LDH, hemolysis suspected
Hematuria
Conditions present prior to admission
History of traumatic subarachnoid hemorrhage
Splenic rupture with splenectomy
Mildly elevated right hemidiaphragm
Plan/recommendations
At this time, patient appears to be comfortable but fatigued, pallorous
Hemoglobin noted at 6.4
Hematology corresponds reviewed
Plan for exchange transfusion
CT chest without evidence of acute pulmonary embolism
Moving forward
Continue with plans for exchange transfusion
Reviewed hematology corresponds. Consent obtained per hematology
EKG unremarkable
No evidence of hypoxia
Continue antibiotics, presently on atovaquone, doxycycline, azithromycin
Infectious disease following
IV fluids continue
Recommend sequential teds for deep prophylaxis
With nursing
TCCT 35 min
--- NOTE | 2024-10-13 17:30 | PTCARENOTE ---
Received patient from ED, Citizen Of [place] speaking originally, able to to communicate in Slovenian, A&Ox3, feeling tired, denied pain, on RA, NSR w/ PVCs, BP soft, poor appetite, no swallowing issue, self reported LBM was 3 weeks ago (Per [facility],
patient had a diarrhea this week), Purewick placed. Pending Blood transfusion exchange by [facility].
[2024-10-13 18:16] LABS: Hematocrit 18.7 % (37.0-47.0); Hemoglobin 6.4 g/dL (12.0-16.0); Mean Corp Hgb Conc. 34.2 g/dL (33.0-37.0); Mean Corpuscular Volume 86.2 fL (81.0-99.0); Platelet Count 169 10^3/uL (130-400); Red Cell Dist. Width 16.4 % (11.5-14.5)
[2024-10-13 18:18] LABS: Fibrinogen 537 MG/DL (199-459)
[2024-10-13] MEDS: TYLENOL 650 MG PO (18:19)
[2024-10-13] MEDS: SENOKOT-S 1 TABLET PO (18:19)
[2024-10-13] MEDS: NSS 1000 IV (18:20)
[2024-10-13 18:33] LABS: ALT (SGPT) 32 U/L (0-35); AST (SGOT) 57 U/L (14-36); Albumin 2.5 g/dl (3.5-5.0); Alkaline Phosphatase 50 U/L (38-126); Blood Urea Nitrogen 13 mg/dl (7-17); Calcium 7.1 mg/dl (8.4-10.2); Carbon Dioxide 21 mmol/L (22-30); Chloride 108 mmol/L (98-107); Glucose 105 mg/dl (70-99); Magnesium 2.0 mg/dl (1.6-2.3); Potassium 3.8 mmol/L (3.5-5.1); Sodium 129 mmol/L (135-145); Total Protein 5.5 g/dl (6.3-8.2); eGFR > 60.00
[2024-10-13 18:36] LABS: Nucleated Red Blood Cells % 1.3 %
[2024-10-13 18:42] LABS: LDH 1164 U/L (120-246)
--- NOTE | 2024-10-13 20:00 | PTCARENOTE ---
Received pt. at 1900. Pt. currently awake, alert, and oriented. Denies pain/discomfort. Afebrile. Heart rhythm sinus. Currently on room air. Lungs sound diminished. PO diet, poor appetite. Purewick drainage device in place. Skin as documented.
Discussed plan of care. Pt. to receive 1u PRBC transfusion. Then 12u PRBC exchange via [facility] RN. Vital signs stable at this time.
[2024-10-13] MEDS: VIBRAMYCIN 100 MG PO (20:20)
[2024-10-14] VITALS (20 sets, daily range): BP systolic 83–115; BP diastolic 48–102; BMI 24.7
[2024-10-14] MEDS: MEPRON SUSPENSION 750 MG PO ×3 (00:28→19:49)
--- NOTE | 2024-10-14 00:30 | PTCARENOTE ---
Pt. assessment unchanged. [facility] RN finished PRBC exchange. Vital signs stable at this time.
[2024-10-14 03:30] LABS: Hematocrit 33.1 % (37.0-47.0); Hemoglobin 11.9 g/dL (12.0-16.0); Mean Corp Hgb Conc. 36.0 g/dL (33.0-37.0); Mean Corpuscular Volume 83.8 fL (81.0-99.0); Platelet Count 57 10^3/uL (130-400); Red Cell Dist. Width 14.4 % (11.5-14.5)
--- NOTE | 2024-10-14 03:50 | PTCARENOTE ---
Pt. assessment remains unchanged. AM labs drawn. Vital signs stable at this time.
[2024-10-14 03:53] LABS: ALT (SGPT) 26 U/L (0-35); AST (SGOT) 42 U/L (14-36); Albumin 1.8 g/dl (3.5-5.0); Alkaline Phosphatase 39 U/L (38-126); Blood Urea Nitrogen 13 mg/dl (7-17); Calcium 6.5 mg/dl (8.4-10.2); Carbon Dioxide 23 mmol/L (22-30); Chloride 114 mmol/L (98-107); Estimated Creatinine Clearance 75 ml/min; Glucose 117 mg/dl (70-99); LDH 923 U/L (120-246); Magnesium 2.0 mg/dl (1.6-2.3); Potassium 4.1 mmol/L (3.5-5.1); Sodium 134 mmol/L (135-145); Total Protein 4.4 g/dl (6.3-8.2); eGFR > 60.00
[2024-10-14] MEDS: CALCIUM GLUCONATE 130 MG IV (04:22)
[2024-10-14] MEDS: TYLENOL 650 MG PO ×2 (05:37→17:41)
[2024-10-14 05:50] LABS: Absolute Neutrophils -Man Diff 3.6 10^3/uL (1.4-6.5); Normal RBC Morphology Yes; Platelets Checked Yes; Total Cells Counted 100
[2024-10-14 05:52] LABS: Nucleated Red Blood Cells % 0.6 %; Reticulocyte Count 3.6 % (0.4-2.8)
--- NOTE | 2024-10-14 06:49 | W.PN.INTV ---
Today's Communication / Plan
Recommendations
IV fluids
P.o. intake adequate
Follow hemoglobin, platelets
Out of bed to chair, ambulate as able
Mechanical DVT prophylaxis
Assessment
-
69-year-old female with recent hospital stay for Covid, discharged recently, persistent cough and shortness of breath noted, outpatient labs with 21% parasitemia consistent with babesiosis, now with anemia. Patient meditates here for exchange
transfusion
Acute babesiosis
21% parasitemia
s/p extraneous transfusion 10/13
Persistent fevers, cough
Recent hospital stay for fevers, cough,
Discharge on antibiotic therapy
Positive Covid
Hyponatremia
Hypocalcemia
Elevated bilirubin
Elevated LDH, hemolysis suspected
Hematuria
Conditions present prior to admission
History of traumatic subarachnoid hemorrhage
Splenic rupture with splenectomy
Mildly elevated right hemidiaphragm
Plan/recommendations
At this time, patient appears to be comfortable but fatigued
Completed exchange transfusion 10/13 without difficulty
Received 1 unit of blood
Hemoglobin noted at 6.4, improved to 11.9
Hematology correspondence reviewed
CT chest without evidence of acute pulmonary embolism
Moving forward
Continue with supportive care
Reviewed hematology correspondence, ID correspondence
Plan to hold further exchange transfusion at this time
EKG unremarkable
No evidence of hypoxia
Continue antibiotics, presently on atovaquone, doxycycline, azithromycin
Infectious disease following
At risk for multisystem organ dysfunction, DIC given asplenia
Tolerating p.o., discontinue IV fluids
Out of bed to chair, ambulate as able
DVT prophylaxis: Mechanical prophylaxis
Reviewed with critical care nursing
Possible transfer out of ICU. If transferred, we will sign off. Please call with questions
Subjective Dataa
Subjective Data
Date of Service:
Date of Service: October 14, 2024
Subjective:
Patient completed exchange transfusion yesterday without difficulty. She appears to be comfortable. She is without complaints. She is complaining of fatigue, denies chest pain, nausea
Objective Data
Data Reviewed
Vital Signs / I&O / Oxygen:
Vital Signs
Temp Pulse Resp BP Pulse Ox
97.8 F 61 30 92/60 96
10/14/24 03:30 10/14/24 06:08 10/14/24 06:08 10/14/24 06:08 10/14/24 06:08
Intake and Output
10/12/24 10/13/24 10/14/24
06:59 06:59 06:59
Intake Total 1310 / 1310
Balance 1310 / 1310
SaO2 96
Physical Exam
General: Comfortable and Other (Right IJ HD catheter)
HEENT: Normocephalic and Anicteric
Cardiovascular: S1-S2, Regular Rhythm, Murmur (n), Rub (n) and Peripheral Edema (n)
Respiratory: Wheeze (n), Crackles (n), Rhonchi (n) and Non-Labored Respirations
GI: Soft, Non Distended and Non Tender
Neurology: Awake, Alert and No Motor Deficits (Generally weak but able to sit up)
Skin: Cyanosis (n), Jaundice (n) and Rash (n)
Labs/Micro/Reports
Lab Data
10/14/24 03:15
10/14/24 03:15
Laboratory Results
10/13/24
14:33
PT 14.5
INR 1.10
APTT 26.9
--- NOTE | 2024-10-14 07:00 | PTCARENOTE ---
- 0700 Assumed care. Patient in bed. Language barrier. c/o of poor appetite and generalize weakness
- AAO x3 Denies pain, SOB.
-SR 70's SBP: 90' s no edema pedal pulses palatable
-Lung clear on RA no cough no SOB
-Abdomen soft non-tender;
- Continent of urine
skin intact call thompson within reach
--- NOTE | 2024-10-14 07:06 | W.PN.ONC2 ---
Today's Communication / Plan
-
-follow parasite load as per ID
-follow CBC
-check DIC, monitor for bleeding
Impression
Impression
Asplenia
Babesiosis -initial smear 21% s/p red cell exchange 10/13, repeat smear pending
Plan
Plan
Red blood cell exchange transfusion is recommended by the [place] [employer] for Apheresis and the Infectious Disease Society of [place] for patients with babesiosis and high-grade parasitemia (>10 percent) and/or one or more of the following: severe
hemolytic anemia or severe organ (pulmonary, renal or hepatic) compromise. Exchange transfusion early in the course of severe�B. microti�infection promptly reduces parasitemia and corrects anemia.
-follow parasite load as per ID
-follow CBC
-check DIC, monitor for bleeding
Subjective/Objective
Subjective
continues with non-productive cough
denies overt bleeding
Vital Signs:
Vital Signs
Temp Pulse Resp BP Pulse Ox
97.8 F 61 30 92/60 96
10/14/24 03:30 10/14/24 06:08 10/14/24 06:08 10/14/24 06:08 10/14/24 06:08
Lab Results:
Laboratory Data
WBC 6.3 10^3/uL (4.8-10.8) 10/14/24 03:15
Hgb 11.9 g/dL (12.0-16.0) L D 10/14/24 03:15
Plt Count 57 10^3/uL (130-400) L D 10/14/24 03:15
PT 14.5 Sec (11.4-14.6) 10/13/24 14:33
INR 1.10 10/13/24 14:33
APTT 26.9 Sec (23.4-35.0) 10/13/24 14:33
eGFR > 60.00 10/14/24 03:15
Physical Exam
HEENT: Moist Mucous Membranes; No Jaundice
Cardiology: Normal Sinus Rhythm
Pulmonary: Clear
GI: Soft
Extremities: Pulses Present; No Edema
Neuro: Non Focal
Orders
Orders
Orders From Last 24 Hours
10/13/24 16:40
* Blood Bank Products Routine
10/13/24 16:[address] Non Medication Order As Directed
10/13/24 17:29
Miscellaneous Order As Directed
10/14/24 03:15
Haptoglobin [S] IN AM
LDH IN AM
Reticulocyte Count IN AM
[2024-10-14] MEDS: VIBRAMYCIN 100 MG PO ×2 (08:02→19:49)
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
[2024-10-14 08:46] LABS: INR 1.22; PT 15.7 Sec (11.4-14.6)
[2024-10-14 08:47] LABS: APTT 26.7 Sec (23.4-35.0)
[2024-10-14 08:49] LABS: D-Dimer 0.57 ug/mlFEU (0.00-0.50)
[2024-10-14 09:41] LABS: Fibrinogen 423 MG/DL (199-459)
--- NOTE | 2024-10-14 09:48 | W.PN.ID1 ---
Date of Service
Date of Service: October 14, 2024
Today's Communication
Hold transfusion exchange today.
Assessment / Plan
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
# Asplenia - at risk for severe infection, which can progress to acute respiratory distress syndrome, multiorgan failure, and DIC
# Acute anemia with hemolysis due to Babesia
# Acute thrombocytopenia due to babesiosis
# Fever
- Continue Azithromycin 1000 mg IV every 24 hours and atovaquone 750 mg p.o. every 12 hours. (d2)
- s/p transfusion exchange 10/13. Appreciate Hem/Onc.
- 10/14/24 repeat babesia smear 5%. Can hold transfusion exchange for now, unless develops MOSF.
- Follow daily parasite smear.
- Continue empiric doxycycline for possible coinfection with other tickborne illnesses pending lab results.
- Monitor closely.
Chief Complaint
-: Other (babesia)
Subjective / Review of Systems
Feel same, weak and fatigue. Cough better.
Vital Signs / Physical Exam
Vital Signs
Vital Signs
Temp Pulse Resp BP Pulse Ox
98.1 F 61 30 92/60 96
10/14/24 07:17 10/14/24 06:08 10/14/24 06:08 10/14/24 06:08 10/14/24 06:08
Physical Exam
Constitutional: No Acute Distress
Eyes: Other (sclera icteric)
Cardiovascular: Regular Rate and S1/S2
Pulmonary: Clear
Gastrointestinal: Soft, Non Tender, Non Distended and Normal Bowel Sounds
Extremities: Negative Edema
Skin: Jaundice
Neurological: AO x 3
Objective Data
Lab Data
Lab Results
10/14/24 03:15
10/14/24 03:15
PT 15.7 Sec (11.4-14.6) H 07/12/25 08:23
INR 1.22 10/14/24 08:23
APTT 26.7 Sec (23.4-35.0) 10/14/24 08:23
Estimated Creat Clear 75 ml/min 10/14/24 03:15
Total Bilirubin 2.3 mg/dl (0.2-1.3) H 10/14/24 03:15
AST 42 U/L (14-36) H 10/14/24 03:15
ALT 26 U/L (0-35) 10/14/24 03:15
Alkaline Phosphatase 39 U/L (38-126) 10/14/24 03:15
Most recent labs reviewed.
Micro Results:
10/14/24 03:15 Blood Parasites Smear - Final
Blood/Venous Babesia species
10/13/[address]: Mild dependent atelectasis within the posterior lungs. Thin linear density within the posterior and inferior lingula, which is likely linear atelectasis, although could also be a thin linear scar. No evidence for pneumonia or lung
mass. Status post splenectomy.
Care Review
Plan reviewed with: Physician (Dr. Saenz) and Other Provider (SATHYA Prieto)
[2024-10-14] MEDS: LR 500 IV (12:11)
[2024-10-14] MEDS: NSS IV (12:12)
[2024-10-14] MEDS: ZITHROMAX 500 MG IV (17:37)
--- NOTE | 2024-10-14 20:00 | PTCARENOTE ---
Received pt. at 1900. Pt. currently in bed. Awake, alert, and oriented. Denies pain/discomfort. Afebrile. Heart rhythm sinus. Blood pressure normotensive. Currently on room air. Lungs sound diminished. PO diet, okay appetite. Voiding on toilet
without issues. Skin as documented. Discussed plan of care with patient. Vital signs stable at this time.
[2024-10-15] VITALS (16 sets, daily range): BP systolic 86–130; BP diastolic 47–77; BMI 24.9
--- NOTE | 2024-10-15 | PTCARENOTE ---
Pt. assessment unchanged. Appears to be resting comfortably. Vital signs stable at this time.
[2024-10-15 03:48] LABS: Hematocrit 27.2 % (37.0-47.0); Hemoglobin 9.9 g/dL (12.0-16.0); Mean Corp Hgb Conc. 36.4 g/dL (33.0-37.0); Mean Corpuscular Volume 84.2 fL (81.0-99.0); Platelet Count 126 10^3/uL (130-400); Red Cell Dist. Width 15.3 % (11.5-14.5)
--- NOTE | 2024-10-15 04:00 | PTCARENOTE ---
Pt. assessment remains unchanged. AM labs drawn. Vital signs stable at this time.
[2024-10-15 04:16] LABS: ALT (SGPT) 28 U/L (0-35); AST (SGOT) 34 U/L (14-36); Albumin 1.8 g/dl (3.5-5.0); Alkaline Phosphatase 36 U/L (38-126); Blood Urea Nitrogen 9 mg/dl (7-17); Calcium 7.0 mg/dl (8.4-10.2); Carbon Dioxide 22 mmol/L (22-30); Chloride 116 mmol/L (98-107); Estimated Creatinine Clearance 75 ml/min; Glucose 86 mg/dl (70-99); LDH 639 U/L (120-246); Magnesium 1.9 mg/dl (1.6-2.3); Potassium 4.1 mmol/L (3.5-5.1); Sodium 136 mmol/L (135-145); Total Protein 4.3 g/dl (6.3-8.2); eGFR > 60.00
[2024-10-15] MEDS: CALCIUM GLUCONATE 130 MG IV (05:42)
--- NOTE | 2024-10-15 06:59 | W.PN.INTV ---
Today's Communication / Plan
Recommendations
Out of bed to chair, ambulate
Hemoglobin noted, platelets improved
Tolerating p.o.
Okay for transfer out of ICU. We will sign off. Please call with questions
Assessment
-
69-year-old female with recent hospital stay for Covid, discharged recently, persistent cough and shortness of breath noted, outpatient labs with 21% parasitemia consistent with babesiosis, now with anemia. Patient meditates here for exchange
transfusion
Acute babesiosis
21% parasitemia
s/p extraneous transfusion 10/13
Persistent fevers, cough
Recent hospital stay for fevers, cough, 10/27
Discharge on antibiotic therapy
Recent positive Covid
Hyponatremia
Hypocalcemia
Elevated bilirubin
Elevated LDH, hemolysis suspected
Hematuria
Conditions present prior to admission
History of traumatic subarachnoid hemorrhage
Splenic rupture with splenectomy
Mildly elevated right hemidiaphragm
Plan/recommendations
At this time, patient appears to be comfortable without complaints
Completed exchange transfusion 10/13 without difficulty
Received 1 unit of blood
Hemoglobin noted at 6.4, improved to 11.9, now 9.9
Platelets improving
Hematology correspondence reviewed
CT chest without evidence of acute pulmonary embolism
Moving forward
Continue with supportive care
Reviewed hematology correspondence, ID correspondence
Plan to hold further exchange transfusion at this time
EKG unremarkable
No evidence of hypoxia
Continue antibiotics, presently on atovaquone, doxycycline, azithromycin
Infectious disease following
At risk for multisystem organ dysfunction, DIC given asplenia, however appears to be improved clinically
Fibrinogen level normal
Out of bed to chair, ambulate as able
Tolerating p.o.
DVT prophylaxis: Mechanical prophylaxis
Reviewed with critical care nursing, primary service
Okay for transfer out of ICU. We will sign off. Please call with questions
Subjective Dataa
Subjective Data
Date of Service:
Date of Service: October 15, 2024
Subjective:
No critical issues overnight. Patient feels well. She denies chest pain, nausea, shortness of breath.
Objective Data
Data Reviewed
Vital Signs / I&O / Oxygen:
Vital Signs
Temp Pulse Resp BP Pulse Ox
97.9 F 54 25 98/68 93
10/15/24 03:25 10/15/24 06:00 10/15/24 06:00 10/15/24 06:00 10/15/24 06:00
Intake and Output
10/13/24 10/14/24 10/15/24
06:59 06:59 06:59
Intake Total 1310 / 1390 2150 / 2150
Balance 1310 / 1390 2150 / 2150
SaO2 93
Physical Exam
General: Comfortable and Other (Right IJ HD catheter)
HEENT: Normocephalic and Anicteric
Cardiovascular: S1-S2, Regular Rhythm, Murmur (n), Rub (n) and Peripheral Edema (n)
Respiratory: Wheeze (n), Crackles (n), Rhonchi (n) and Non-Labored Respirations
GI: Soft, Non Distended and Non Tender
Neurology: Awake, Alert and No Motor Deficits (Generally weak but able to sit up)
Skin: Cyanosis (n), Jaundice (n) and Rash (n)
Labs/Micro/Reports
Lab Data
10/15/24 03:23
10/15/24 03:23
Laboratory Results
10/14/24
08:23
PT 15.7 H
INR 1.22
APTT 26.7
Microbiology
10/14/24 03:15 Blood/Venous Blood Parasites Smear - Final
Babesia species
[2024-10-15] MEDS: MEPRON SUSPENSION 750 MG PO ×2 (07:46→20:59)
[2024-10-15] MEDS: VIBRAMYCIN 100 MG PO ×2 (07:46→20:58)
--- NOTE | 2024-10-15 07:55 | PTCARENOTE ---
- 0700 assumed care.
- AAO x3 Language barrier, however able to communicate and understand basic needs; Denies pain. Temp 96.7
- SR 70's BP: via left upper arm: 130/66 MAP 77; S1/S2 No murmur. No edema
- Lungs clear to auscultation. Respiration even
-Abdomen soft non-distended; patient reports of Last Bowel Movement : 2 days ago after Senna
-Voiding on toilet
-self ambulatory in room denies dizziness
[2024-10-15 08:29] LABS: Absolute Neutrophils -Man Diff 5.0 10^3/uL (1.4-6.5)
[2024-10-15 08:34] LABS: Normal RBC Morphology Yes; Platelets Checked Yes; Total Cells Counted 100
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
--- NOTE | 2024-10-15 09:01 | W.PN.ID1 ---
Date of Service
Date of Service: October 15, 2024
Today's Communication
Continue abx's.
No need for further transfusion exchange.
Assessment / Plan
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
# Asplenia - at risk for severe infection, which can progress to acute respiratory distress syndrome, multiorgan failure, and DIC
# Acute anemia with hemolysis due to Babesia
# Acute thrombocytopenia due to babesiosis
# Fever - resolved
- s/p transfusion exchange 10/13. Appreciate Hem/Onc.
- No need for further transfusion exchange.
- 10/14/24 repeat babesia smear 5% -> 1.9% (10/15)
- Follow daily parasite smear.
-Continue Azithromycin 1000 mg IV every 24 hours and atovaquone 750 mg p.o. every 12 hours. (d3)
Can transition IV azithro to po 500mg q24 tomorrow am.
- Continue empiric doxycycline (d2) for possible coinfection with other tickborne illnesses pending lab results.
- Follow CBC
Chief Complaint
-: Other (babesia)
Subjective / Review of Systems
Feeling better today. Less tired.
Vital Signs / Physical Exam
Vital Signs
Vital Signs
Temp Pulse Resp BP Pulse Ox
96.6 F L 63 22 106/53 93
10/15/24 07:50 10/15/24 08:00 10/15/24 07:00 10/15/24 08:00 10/15/24 07:00
Physical Exam
Constitutional: No Acute Distress and Comfortable
Eyes: Other (sclera mild icterus)
Cardiovascular: Regular Rate and S1/S2
Pulmonary: Clear
Gastrointestinal: Soft, Non Tender, Non Distended and Normal Bowel Sounds
Genito-Urinary: Negative CVA Tenderness
Extremities: Negative Edema
Neurological: AO x 3
Objective Data
Lab Data
Lab Results
10/15/24 03:23
10/15/24 03:23
PT 15.7 Sec (11.4-14.6) H 10/14/24 08:23
INR 1.22 10/14/24 08:23
APTT 26.7 Sec (23.4-35.0) 10/14/24 08:23
Estimated Creat Clear 75 ml/min 10/15/24 03:23
Total Bilirubin 1.1 mg/dl (0.2-1.3) D 10/15/24 03:23
AST 34 U/L (14-36) 10/15/24 03:23
ALT 28 U/L (0-35) 10/15/24 03:23
Alkaline Phosphatase 36 U/L (38-126) L 10/15/24 03:23
Most recent labs reviewed.
Micro Results:
10/15/24 03:23 Blood Parasites Smear - Final
Blood/Venous Babesia species
10/14/24 03:15 Blood Parasites Smear - Final
Blood/Venous Babesia species
10/13/[address]: Mild dependent atelectasis within the posterior lungs. Thin linear density within the posterior and inferior lingula, which is likely linear atelectasis, although could also be a thin linear scar. No evidence for pneumonia or lung
mass. Status post splenectomy.
[2024-10-15] MEDS: ZITHROMAX 500 MG PO (10:01)
[2024-10-15] MEDS: LOVENOX 40 MG SC (10:04)
--- NOTE | 2024-10-15 11:33 | PTCARENOTE ---
Transfer:
- Transfer to room 414:2 Transfer via w/c Report provided via phone
- At time of transfer pt AAO x3 Forgetful.
- Normal Sinus Rhythm S1/S2 no edema VSS
-Abdomen soft non-tender Good appetite No nausea
-Voiding in a bathroom
-Ambulates independently in a room . Unsteady gait noted. patient encouraged to use call [facility] for assistance
--- NOTE | 2024-10-15 16:38 | W.PN.ONC2 ---
Today's Communication / Plan
-
Okay to remove central line.
We are monitoring CBC, LDH, indirect bili.
Clinically improved and feels better.
Impression
Impression
Asplenia
Babesiosis -initial smear 21% s/p red cell exchange 10/13, repeat smear now with 1.9% parasitemia
Plan
Plan
Parasite load continues to decrease following red cell exchange 10/13, continuing on oral antibiotics.
Central line can come out.
No evidence of DIC.
Hemolysis labs improving.
Subjective/Objective
Chief Complaint
Heme/Onc follow up of anemia due to babesiosis
Subjective
Denies complaint. Would like to get the central catheter out.
Vital Signs:
Vital Signs
Temp Pulse Resp BP Pulse Ox
98 F 64 16 103/63 98
10/15/24 15:47 10/15/24 15:47 10/15/24 15:47 10/15/24 15:47 10/15/24 11:34
Lab Results:
Laboratory Data
WBC 8.2 10^3/uL (4.8-10.8) 10/15/24 03:23
Hgb 9.9 g/dL (12.0-16.0) L 10/15/24 03:23
Plt Count 126 10^3/uL (130-400) L D 10/15/24 03:23
PT 15.7 Sec (11.4-14.6) H 10/14/24 08:23
INR 1.22 10/14/24 08:23
APTT 26.7 Sec (23.4-35.0) 10/14/24 08:23
eGFR > 60.00 10/15/24 03:23
Physical Exam
Awake, alert, non-toxic
Review of Systems
Review of Systems
negative except as per HPI
[2024-10-16 03:00] VITALS: BP 118/76
--- NOTE | 2024-10-16 03:56 | PTCARENOTE ---
Patient with 11 beats vtach on telemetry. Patient asymptomatic, sleeping in her bed. Provider notified. Lab for magnesium ordered for AM.
[2024-10-16 07:39] LABS: Hematocrit 28.8 % (37.0-47.0); Hemoglobin 10.2 g/dL (12.0-16.0); Mean Corp Hgb Conc. 35.4 g/dL (33.0-37.0); Mean Corpuscular Volume 87.0 fL (81.0-99.0); Platelet Count 202 10^3/uL (130-400); Red Cell Dist. Width 16.1 % (11.5-14.5)
[2024-10-16 08:00] VITALS: BP 125/63
[2024-10-16] MEDS: ZITHROMAX 500 MG PO (08:20)
[2024-10-16] MEDS: MEPRON SUSPENSION 750 MG PO (08:22)
[2024-10-16] MEDS: VIBRAMYCIN 100 MG PO (08:22)
[2024-10-16 08:24] LABS: ALT (SGPT) 34 U/L (0-35); AST (SGOT) 39 U/L (14-36); Albumin 2.3 g/dl (3.5-5.0); Alkaline Phosphatase 55 U/L (38-126); Blood Urea Nitrogen 7 mg/dl (7-17); Calcium 7.9 mg/dl (8.4-10.2); Carbon Dioxide 25 mmol/L (22-30); Chloride 114 mmol/L (98-107); Estimated Creatinine Clearance 75 ml/min; Glucose 87 mg/dl (70-99); Magnesium 1.9 mg/dl (1.6-2.3); Potassium 4.1 mmol/L (3.5-5.1); Sodium 138 mmol/L (135-145); Total Protein 5.2 g/dl (6.3-8.2); eGFR > 60.00
[2024-10-16 08:25] LABS: Nucleated Red Blood Cells % 1.3 %
--- NOTE | 2024-10-16 08:40 | W.PN.ONC2 ---
Today's Communication / Plan
-
monitor CBC daily
Impression
Impression
Asplenia
Babesiosis -initial smear 21% s/p red cell exchange 10/13, repeat smear now with 1.9% parasitemia
Plan
Plan
Parasite load continues to decrease following red cell exchange 10/13, continuing on oral antibiotics.
Central line can come out.
No evidence of DIC.
Hemolysis labs improving.
Subjective/Objective
Subjective
no new complaints
Vital Signs:
Vital Signs
Temp Pulse Resp BP Pulse Ox
97.6 F 70 18 118/76 97
10/16/24 03:00 10/16/24 03:00 10/16/24 03:00 10/16/24 03:00 10/16/24 03:00
Lab Results:
Laboratory Data
WBC 10.6 10^3/uL (4.8-10.8) 10/16/24 07:06
Hgb 10.2 g/dL (12.0-16.0) L 10/16/24 07:06
Plt Count 202 10^3/uL (130-400) D 10/16/24 07:06
PT 15.7 Sec (11.4-14.6) H 10/14/24 08:23
INR 1.22 10/14/24 08:23
APTT 26.7 Sec (23.4-35.0) 10/14/24 08:23
eGFR > 60.00 10/16/24 07:06
Physical Exam
HEENT: Moist Mucous Membranes; No Jaundice
Cardiology: Normal Sinus Rhythm
Pulmonary: Clear
GI: Soft
Extremities: Pulses Present; No Edema
Neuro: Non Focal
[2024-10-16 11:19] VITALS: BP 118/63
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
--- NOTE | 2024-10-16 13:54 | W.PN.ID1 ---
Date of Service
Date of Service: October 16, 2024
Today's Communication
DC home.
See below recs.
Assessment / Plan
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
# Asplenia - at risk for severe infection
# Acute anemia with hemolysis due to Babesia
# Acute thrombocytopenia due to babesiosis
# Fever - resolved
- s/p transfusion exchange 10/13. Appreciate Hem/Onc.
- No need for further transfusion exchange.
- 10/14/24 repeat babesia smear 5% -> 1.9% (10/15) -> 1.5% (10/16/24)
- Due to asplenia, treat babesia x 6 weeks. Discussed high risk persistence and/or relapse.
-Continue Azithromycin 500mg po daily and atovaquone 750 mg po bid through 11/23/24.
Check cbc/dif, CMP, parasite smear every 1- 2 weeks. Script etransmitted to [facility].
- Continue empiric doxycycline 100mg po bid (d3 of 10) through 10/23/24 for possible coinfection with other tickborne illnesses pending lab results.
- Discussed importance of insect prevention.
- Follow-up with me in 3 weeks.
Chief Complaint
-: Other (babesia)
Subjective / Review of Systems
Feels good. Wants to go home.
Vital Signs / Physical Exam
Vital Signs
Vital Signs
Temp Pulse Resp BP Pulse Ox
97.7 F 75 20 118/63 96
10/16/24 11:19 10/16/24 11:19 10/16/24 11:19 10/16/24 11:19 10/16/24 11:19
Physical Exam
Eyes: No Conjunctival Hemorrhage and Sclera Anicteric
Cardiovascular: Regular Rate and S1/S2
Pulmonary: Clear
Gastrointestinal: Soft, Non Tender and Non Distended
Skin: Negative Jaundice
Neurological: AO x 3
Objective Data
Lab Data
Lab Results
10/16/24 07:06
10/16/24 07:06
PT 15.7 Sec (11.4-14.6) H 10/14/24 08:23
INR 1.22 10/14/24 08:23
APTT 26.7 Sec (23.4-35.0) 10/14/24 08:23
Estimated Creat Clear 75 ml/min 10/16/24 07:06
Total Bilirubin 0.7 mg/dl (0.2-1.3) 10/16/24 07:06
AST 39 U/L (14-36) H 10/16/24 07:06
ALT 34 U/L (0-35) 10/16/24 07:06
Alkaline Phosphatase 55 U/L (38-126) 10/16/24 07:06
Most recent labs reviewed.
Micro Results:
10/16/24 07:06 Blood Parasites Smear - Final
Blood/Venous Babesia species
10/15/24 03:23 Blood Parasites Smear - Final
Blood/Venous Babesia species
10/14/24 03:15 Blood Parasites Smear - Final
Blood/Venous Babesia species
10/13/[address]: Mild dependent atelectasis within the posterior lungs. Thin linear density within the posterior and inferior lingula, which is likely linear atelectasis, although could also be a thin linear scar. No evidence for pneumonia or lung
mass. Status post splenectomy.
Care Review
Plan reviewed with: Physician (Dr. Bernardo)
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
--- NOTE | 2024-10-16 14:53 | CM ---
Patient stable for d/c today.
Met w/ patient, agreeable to d/c. Spouse will transport home
IMM verbally reviewed, copy provided, copy on chart
No CM needs at this time
Plan: Home, no needs
[2024-10-16 15:05] VITALS: BP 114/71
== END 2024-10-16 16:40 | disposition home or self-care (01) | DRG 809 ==
LOC: 4 WEST ACU 15:52
PROVIDERS: Nurse Practitioner Acute Care; Physician Assistant Medical; Radiology Vascular & Interventional Radiology; Student in an Organized Health Care Education/Training Program; ADMITTING PHYSICIAN Hospitalist; CONSULT PHYSICIAN Internal Medicine Critical Care Medicine; CONSULT PHYSICIAN Internal Medicine Hematology & Oncology; CONSULT PHYSICIAN Internal Medicine Infectious Disease; EMERGENCY PHYSICIAN Emergency Medicine; FAMILY PHYSICIAN Physician Assistant
PROC: 30233H1 Transfusion of Nonautologous Whole Blood into Peripheral Vein, Percutaneous Approach (ICD-10-PCS; 2024-10-13)
PROC: 02HV33Z Insertion of Infusion Device into Superior Vena Cava, Percutaneous Approach (ICD-10-PCS; 2024-10-13)
PROC: 30233N1 Transfusion of Nonautologous Red Blood Cells into Peripheral Vein, Percutaneous Approach (ICD-10-PCS; 2024-10-13)
DX: D59.4 Other nonautoimmune hemolytic anemias (principal); B60.00 Babesiosis, unspecified; D84.9 Immunodeficiency, unspecified; E87.1 Hypo-osmolality and hyponatremia; R17 Unspecified jaundice; J98.11 Atelectasis; E83.51 Hypocalcemia; R74.02 Elevation of levels of lactic acid dehydrogenase [LDH]; R31.9 Hematuria, unspecified; E86.1 Hypovolemia; D69.59 Other secondary thrombocytopenia; Z90.81 Acquired absence of spleen; Z87.891 Personal history of nicotine dependence; Z87.820 Personal history of traumatic brain injury; Z86.16 Personal history of COVID-19
CPT/HCPCS: 36556; 71046; 71275; 76937; 80053; 82248; 82550; 83010; 83615; 83735; 84100; 85025; 85045; 85379; 85384; 85610; 85730; 86618; 86850; 86900; 86901; 86920; 87015; 87040; 87207; 87468; 87484; 87502; 87798; 87811; 93005; 96365; 99284; C1752; P9016; Q9967